=== PATIENT | male | born 1985 | race Two or more races ===

== ENCOUNTER 2019-02-20 21:59 | Emergency (ER) | payer SELFPAY ==
[~2019-02-20] VITALS: Ht 152.4 cm; Wt 61.7 kg
[2019-02-20 22:00] VITALS: BP 127/61
[2019-02-20] MEDS ORDERED: FLUORESCEIN OPHTH TEST STRIP. ONE (22:14)
[2019-02-20] MEDS ORDERED: TETRACAINE 0.5% OPHTH SOLUTION 4ML BOTTLE. ONE (22:14)
[2019-02-20] MEDS ORDERED: FLUORESCEIN OPHTH TEST STRIP. OS ONE (22:15)
[2019-02-20] MEDS ORDERED: TETRACAINE 0.5% OPHTH SOLUTION 4ML BOTTLE. OD ONE (22:15)
[2019-02-20] MEDS ORDERED: ERYT1OIN6 RIGHT EAR (22:26)
--- NOTE | 2019-02-20 22:27 | PHYS DOC ---
Adult General Chief Complaint Chief Complaint: EYE PROBLEMS HPI HPI Patient is a 33 year old male who presents with burn to the right eye. 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 Denies any vision loss Review of Systems Review of Systems Constitutional: Denies fever or chills [] Eyes: Reports burn to the right eye. Denies change in visual acuity Integument: Denies rash or skin lesions [] Neurologic: Denies headache, focal weakness or sensory changes [] All other systems were reviewed and found to be within normal limits, except as documented in this note. Current Medications Current Medications Current Medications Medications (Trade) Dose Ordered Sig/Danisha Start Time Stop Time Status Last Admin Dose Admin Fluorescein Sodium (Ful-Chela) 1 strip STK-MED ONCE 02/20/19 22:14 02/20/19 22:15 DC Tetracaine HCl (Tetracaine) 40 drop STK-MED ONCE 02/20/19 22:14 02/20/19 22:15 DC Allergies Allergies Allergies Coded Allergies Type Severity Reaction Last Updated Verified No Known Drug Allergies 02/20/19 No Physical Exam Physical Exam Constitutional: Well developed, well nourished, no acute distress, non-toxic appearance. [] HENT: Normocephalic, atraumatic, bilateral external ears normal, oropharynx moist, no oral exudates, nose normal. [] Eyes: PERRLA, EOMI, mild injection to the right conjunctiva normal, clear discharge. Internal chambers are intact Eye exam under butt lump Right eye was numbed with tetracaine and stained with fluorescein. Small corneal abrasion noted at 1600 position. Skin: Warm, dry, no erythema, no rash. [] Back: No tenderness, no CVA tenderness. [] Extremities: No tenderness, no cyanosis, no clubbing, ROM intact, no edema. [] Neurologic: Alert and oriented X 3, normal motor function, normal sensory function, no focal deficits noted. [] Psychologic: Affect normal, judgement normal, mood normal. [] EKG EKG [] Radiology/Procedures Radiology/Procedures [] Course & Med Decision Making Course & Med Decision Making Pertinent Labs and Imaging studies reviewed. (See chart for details) This is a 33-year-old male patient who presents to the ED today to be evaluated after getting hot cooking oil in his right eye while cooking. Tetanus up to date. Noted for corneal abrasion/burn to the right eye. D/c on Erythromycin. F/u with sanding machine buffer in 2-7 days. Arelis Disclaimer Arelis Disclaimer This electronic medical record was generated, in whole or in part, using a voice recognition dictation system. Departure Departure Impression: Primary Impression: Burn of cornea, right Additional Impression: Corneal abrasion, right Disposition: 01 HOME, SELF-CARE Condition: STABLE Referrals: RICHARD RAMSEY MD follow up in 2-7 days Patient Instructions: Eye - Corneal Abrasion, [id number] Additional Instructions: You have a small burn to the right eye. Please contact the eye doctor provided in 2-7 days and follow up. Use the medicine provided as ordered. Scripts Erythromycin Base (Erythromycin) 1 Gm Oint...g. 1 APPLIC RIGHT EAR Q4HRS W/A, #1 MISC Use for 7 days Prov: MAURI ZELAYA APRN 02/20/19 Problem Qualifiers Primary Impression: Burn of cornea, right Encounter type: initial encounter Qualified Codes: T26.11XA - Burn of cornea and conjunctival sac, right eye, initial encounter Additional Impression: Corneal abrasion, right Encounter type: initial encounter Qualified Codes: S05.01XA - Injury of conjunctiva and corneal abrasion without foreign body, right eye, initial encounter MAURI ZELAYA APRN Feb 20, 2019 22:27
== END 2019-02-20 22:43 | disposition home or self-care (01) ==
LOC: ER 21:59
DX: T26.11XA Burn of cornea and conjunctival sac, right eye, initial encounter (principal); T79.8XXA Other early complications of trauma, initial encounter; S05.01XA Injury of conjunctiva and corneal abrasion without foreign body, right eye, initial encounter; X10.2XXA Contact with fats and cooking oils, initial encounter; Y93.G3 Activity, cooking and baking; Y92.511 Restaurant or cafe as the place of occurrence of the external cause; Y99.0 Civilian activity done for income or pay
CPT/HCPCS: 99283